=== PATIENT | female | born 1955 | race Caucasian/White ===

== ENCOUNTER 2021-09-08 15:00 | Emergency (ER) | payer MEDICARE, BC, SELFPAY ==
[2021-09-08] VITALS (8 sets, daily range): BP systolic 117–156; BP diastolic 69–80; PULSE 65–108; RESP 12–18; TEMP 36.6; O2SAT 92–100; BMI 23.1
--- NOTE | 2021-09-08 15:20 | ED_ITS ---
HPI - Fall General: Chief Complaint: Extremity Injury, Upper Stated Complaint: POSSIBLE BROKEN R ARM, N/V Time Seen by Provider: 09/08/21 15:04 History of Present Illness: 65-year-old female who presents to the emergency room after a fall at home. She was on some stairs but only they were somewhat crowded there is some children around her legs she stumbled and fell landing on her right side. She has a small laceration on restorationism lateral supraorbital ridge area as well as a deformity to the right elbow and severe pain. She has a sling in place on arrival here she denies loss of consciousness. 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 She denies any other injury. MD complaint: fall Onset (ago): minute(s) Fall from: standing Fall witnessed: yes, by bystander Place fall occurred: home Loss of consciousness: None Prolonged down time: no Symptoms prior to fall: none Context: tripped/slipped Location of injury: head Location of injury - extremities: Right: elbow Associated symptoms-after fall: Denies abdominal pain, chest pain, confusion, difficulty walking, headache(s), hematuria, lightheadedness, neck pain, numbness, short of breath, vertigo or weakness Review of Systems Const: Denies: fever(s), chills, body aches, change in appetite, fatigue or malaise ENMT: Denies: throat pain, ear or mastoid pain, nasal discharge or nasal congestion Card: Denies: chest pain or lightheadedness Resp: Denies: dyspnea, productive cough or non-productive cough GI: Denies: abdominal pain : Denies: hematuria Musc: Denies: neck pain Skin/Breast: Denies: rash or pruritus Neuro: Denies: headache(s), difficulty walking, vertigo or confusion PFS ED PFSH: Medical History Hypertension Physical Exam Const: COMMON NORMALS: no acute distress GENERAL APPEARANCE: cooperative and comfortable ORIENTATION/CONSCIOUSNESS: Yes awake, Yes oriented to person, Yes oriented to place and Yes oriented to time HENMT: COMMON NORMALS: normocephalic, hearing grossly normal bilaterally, external ears normal, EAC's normal and Normal nasal mucous membranes and turbinates present HEAD & SCALP: normocephalic NOSE: Normal nasal mucous membranes and turbinates present EXTERNAL EAR: Yes external ears normal EXTERNAL AUDITORY CANAL: EAC's normal OTHER: Nongaping superficial laceration to the right lateral supraorbital ridge. No active bleeding. Eye: COMMON NORMALS: Equal, round and reactive pupils present, EOMs intact bi laterally, conjunctivae normal and no scleral icterus CONJUNCTIVA: Yes co njunctivae normal PUPIL: Yes Equal, round and reactive pupils present Neck/C-Spine: COMMON NORMALS: no JVD Resp: COMMON NORMALS: normal respiratory effort, No retractions, No use of accessory muscles and clear to auscultation bilaterally AUSCULTATION: clear to auscultation bilaterally Cardio: COMMON NORMALS: no JVD, regular rate, regular rhythm and No murmurs present (Cardio) RATE: regular rate RHYTHM: regular rhythm GI: COMMON NORMALS: Soft to palpation and No hepatosplenomegaly present AUSCULTATION: Yes normoactive bowel sounds PALPATION: Yes Soft to palpation, No Tenderness to palpation present (GI), No Guarding due to palpation present (GI) and Yes No hepatosplenomegaly present Extremity: OTHER: Obvious deformity of the right elbow. X-ray confirms anterior dislocation radial head fracture neurovascularly intact distal to the injury. Neuro: SENSORIUM/ORIENTATION: Yes oriented to person, Yes oriented to place and Yes oriented to time Skin: COMMON NORMALS: no rashes or lesions noted GENERAL SKIN EXAM: no rashes or lesions noted Procedures Orthopedic Joint Reduction Joint #1: Time Out Performed: Yes Side: right Joint Reduction Location: elbow Analgesia: procedural sedation Technique used: traction/counter-traction Post-reduction neuro exam: intact Post-reduction vascular: intact Post Reduction X-Ray Obtained: Yes Post Reduction X-Ray Results: reduced Splint Applied: Yes Patient Tolerated Procedure: well Additional Comments: After initial reduction x-rays were taken and the elbow was extended slightly which resulted in repeat dislocation. This is evident on the postreduction film. Elbow was read reduced again patient was still under the effects of the initial conscious sedation was ketamine. Was held in position and splint applied. X-ray confirmed reduction. Orthopedic Splinting/Casting Injury #1: Side: right Upper Extremity Injury Location: elbow Upper Extremity Immobilizer: sling/shoulder immobilizer and posterior splint Additional Comments: Splint placed immediately after reduction of anterior dislocation of the elbow. Procedural Sedation Indication: fracture/dislocation reduction Preparation: monitoring tech applied, pulse oximeter, supplemental O2 applied, reversal agents at bedside and suction/airway equipment at bedside Ketamine: IV Ketamine dose (mg): 200 Patient Tolerated Procedure: well Complications: none Additional Comments: Patient tolerated procedural sedation without difficulty recovered well. Patient given low-dose of Ativan during recovery to help with side effects of ketamine. Course Vital Signs: Vital signs: Vital Signs Temperature 97.9 F 09/08/21 15:15 Pulse Rate 71 09/08/21 20:59 Respiratory Rate 14 09/08/21 20:59 Blood Pressure 117/69 09/08/21 20:59 Pulse Oximetry 95 09/08/21 20:59 MDM - Fall Medical Decision Making Reviewed and discussed case with Dr. Maradiaga. She is also reviewed. Initial and post reduction films. Patient will need to some elbow reconstruction with a radial head fracture. Patient is discharged home with pain medications and a posterior splint and sling referred to Dr. Maradiaga for further evaluation. Dr. Maradiaga and anticipates referral to subspecialist for elbow reconstruction. Patient advised to remain in the splint without exception until seen by Dr. Maradiaga. Return if has further problems. Medical Records I reviewed the patient's medical records. Lab Data I reviewed the patient's lab results. : 09/08/21 15:36 09/08/21 15:36 Radiology Impressions Cervical Spine X-Ray 09/08/21 15:21 IMPRESSION: 1. No obvious fracture or malalignment. The mid and inferior aspect of C7 is difficult to identify with any degree of certainty. 2. Degenerative changes. Head CT 09/08/21 15:22 IMPRESSION: 1. No acute intracranial hemorrhage or edema. 2. Small RIGHT frontal scalp hematoma. Elbow X-Ray 09/08/21 17:52 IMPRESSION: 1. Reduction of the right ulnar trochlear joint. 2. Severely displaced comminuted proximal right radius fracture. Laboratory Results WBC 12.3 10^3/uL (4.0-10.0) H 09/08/21 15:36 RBC 4.36 10^6/uL (4.1-5.3) 09/08/21 15:36 Hgb 11.8 g/dL (11.5-15.3) 09/08/21 15:36 Hct 37.6 % (37.0-47.0) 09/08/21 15:36 MCV 86.2 fl (81-99) 09/08/21 15:36 MCH 27.1 pg (28.0-34.0) L 09/08/21 15:36 MCHC 31.4 g/dL (30.0-36.0) 09/08/21 15:36 RDW 14.7 % (12.1-15.1) 09/08/21 15:36 Plt Count 356 10^3/cmm (130-400) 09/08/21 15:36 MPV 11.3 fL (7.4-10.4) H 09/08/21 15:36 Neut % (Auto) 56.5 % 09/08/21 15:36 Lymph % (Auto) 29.8 % 09/08/21 15:36 Clinch % (Auto) 11.1 % 09/08/21 15:36 Eos % (Auto) 1.5 % 09/08/21 15:36 Baso % (Auto) 0.6 % 09/08/21 15:36 Neut # (Auto) 6.96 10^3/uL (1.8-7.7) 09/08/21 15:36 Lymph # (Auto) 3.7 10^3/uL (0.8-4.8) 09/08/21 15:36 Clinch # (Auto) 1.4 10^3/uL (0.2-0.9) H 09/08/21 15:36 Eos # (Auto) 0.2 10^3/uL (0.0-0.8) 09/08/21 15:36 Baso # (Auto) 0.1 10^3/uL (0.0-0.1) 09/08/21 15:36 Nucleated RBC % (auto) 0 % 09/08/21 15:36 Nucleated RBCs # 0.0 /100WBC 09/08/21 15:36 Sodium 140 mmol/L (136-145) 09/08/21 15:36 Potassium 2.9 mmol/L (3.5-5.1) L 09/08/21 15:36 Chloride 103 mmol/L (98-107) 09/08/21 15:36 Carbon Dioxide 24 mmol/L (22-29) 09/08/21 15:36 Anion Gap 15.9 (5-19) 09/08/21 15:36 BUN 19 mg/dL (8-23) 09/08/21 15:36 Creatinine 1.0 mg/dL (0.5-0.9) H 09/08/21 15:36 GFR Calculation 55.3 mL/min (90-130) L 09/08/21 15:36 Glucose 116 mg/dL (65-115) H 09/08/21 15:36 Calculated Osmolality 293 mOsm/kg (285-295) 09/08/21 15:36 Calcium 8.8 mg/dL (8.5-10.5) 09/08/21 15:36 Total Bilirubin 0.2 mg/dL (0.15-1.2) 09/08/21 15:36 AST 19 U/L (0-32) 09/08/21 15:36 ALT 12 U/L (0-33) 09/08/21 15:36 Alkaline Phosphatase 73 IU/L (35-105) 09/08/21 15:36 Total Protein 6.3 g/dL (6.6-8.7) L 09/08/21 15:36 Albumin 3.9 g/dL (3.5-5.2) 09/08/21 15:36 Globulin 2.4 g/dL (1.3-4.6) 09/08/21 15:36 Discharge Plan Discharge Patient Disposition: Home Clinical Impression: Fracture, radius, head, Dislocation of elbow, anterior, right, closed Condition: Stable Prescriptions: New hydrocodone-acetaminophen 5-325 mg tablet 1 tab PO Q6H PRN (Reason: pain) Qty: 20 0RF ondansetron 4 mg tablet,disintegrating 4 mg PO Q6H PRN (Reason: nausea and vomiting) Qty: 14 0RF No Action lisinopril-hydrochlorothiazide 20-12.5 mg tablet 2 tab PO QAM 0RF lovastatin 40 mg tablet 40 mg PO QAM 0RF prednisone 5 mg tablet 5 mg PO EVERY OTHER DAY 0RF potassium chloride 10 mEq tablet extended release 10 meq PO BID 0RF Discharge Orders: Discharge ED (Routine); Ordered 09/08/21 Ordered By: Matthew Galvan Referrals: Dino Taylor MD [Physician] - Patient Instructions: Opioid Safety Activity Restrictions/Additional Instructions: Remain in the sling. Case management will call to make arrangements for you to see orthopedics. Ice elbow use pain medications as needed. Coding Level of Care Code ED Street Openings Inspector for Tiburcio Ward
--- NOTE | 2021-09-08 15:21 | XR_ITS ---
WS: [id number] Exam: XR cervical spine 3V* [id number] Date/Time of Exam: 09/08/2021 3:28 PM Reason For Exam: fall No obvious fracture or dislocation involving the upper 6 cervical vertebra. Only the upper plate of C 7 is visualized and appears to be intact. Facet DJD at all levels. The odontoid is intact. Normal par aspinal soft tissues. XR/XR cervical spine 3V* [id number] IMPRESSION: 1. No obvious fracture or malalignment. The mid and inferior aspect of C7 is di fficult to identify with any degree of certainty. 2. Degenerative changes.
--- NOTE | 2021-09-08 15:21 | XR_ITS ---
WS: [id number] Exam: XR elbow RT min 3V* [id number] Date/Time of Exam: 09/08/2021 3:28 PM Reason For Exam: fall There is posterior dislocation of the proximal radius and ulna. There is a transverse fracture throug h the radial neck with the anterior inferior displacement of the radial head with [id number] apposi tion along the proximal shaft of the radius. There is also an avulsion fracture of the coronoid proce ss of the ulna. XR/XR elbow RT min 3V* [id number] IMPRESSION: 1. Posterior elbow dislocation with displaced fractures of the radial neck as w ell as the coronoid process of the ulna.
--- NOTE | 2021-09-08 15:22 | CT_ITS ---
WS: [id number] CT HEAD NONCONTRAST HISTORY: fall TECHNIQUE: Contiguous axial imaging performed through the brain in 2.5 mm imaging. Bone and soft tiss ue windows. Sagittal and coronal reformats reviewed. All CT scans at [facility] use at least one of these dose optimization techniques: automated exposure control; mA and/or kV adjustment per pa tient size (includes targeted exams where dose is matched to clinical indication); or iterative recon struction. DLP: 835.19 mGy.cm COMPARISON: None available. No acute intracranial hemorrhage, midline shift or mass effect. No atrophy or prior infarcts or herniation. Ventricles: Normal size with no hydrocephalus. Paranasal sinuses: As visualized are clear. Mastoid air cells: Well pneumatized. Calvarium and scalp: No fracture. Small scalp contusion over the RIGHT lateral frontal bone. CT/CT head wo con* [id number] IMPRESSION: 1. No acute intracranial hemorrhage or edema. 2. Small RIGHT frontal scalp hematoma.
[2021-09-08 15:50] LABS: Basophils # 0.1 10^3/uL (0.0-0.1); Basophils % 0.6 %; Eosinophils # 0.2 10^3/uL (0.0-0.8); Eosinophils % 1.5 %; Hematocrit 37.6 % (37.0-47.0); Hemoglobin 11.8 g/dL (11.5-15.3); Lymphocytes # 3.7 10^3/uL (0.8-4.8); Lymphocytes % 29.8 %; Mean Corpuscular HGB Conc 31.4 g/dL (30.0-36.0); Mean Corpuscular Hemoglobin 27.1 pg (28.0-34.0); Mean Corpuscular Volume 86.2 fl (81-99); Mean Platelet Volume 11.3 fL (7.4-10.4); Monocytes # 1.4 10^3/uL (0.2-0.9); Monocytes % 11.1 %; Neutrophils # 6.96 10^3/uL (1.8-7.7); Neutrophils % 56.5 %; Nucleated Red Blood Cells % 0 %; Platelet Count 356 10^3/cmm (130-400); Red Blood Count 4.36 10^6/uL (4.1-5.3); Red Cell Distribution Width 14.7 % (12.1-15.1); White Blood Count 12.3 10^3/uL (4.0-10.0)
[2021-09-08 16:17] LABS: Alanine Aminotransferase 12 U/L (0-33); Albumin Level 3.9 g/dL (3.5-5.2); Alkaline Phosphatase 73 IU/L (35-105); Anion Gap 15.9 (5-19); Aspartate Amino Transferase 19 U/L (0-32); Blood Urea Nitrogen 19 mg/dL (8-23); Calcium 8.8 mg/dL (8.5-10.5); Carbon Dioxide 24 mmol/L (22-29); Chloride 103 mmol/L (98-107); Globulin 2.4 g/dL (1.3-4.6); Glomerular Filtration Rate 55.3 mL/min (90-130); Glucose 116 mg/dL (65-115); Osmolality Calculated 293 mOsm/kg (285-295); Sodium 140 mmol/L (136-145); Total Bilirubin 0.2 mg/dL (0.15-1.2); Total Protein 6.3 g/dL (6.6-8.7)
[2021-09-08 16:21] LABS: Potassium 2.9 mmol/L (3.5-5.1)
[2021-09-08] MEDS: morphine 4 mg/mL SDV 1 mL IVP (17:32)
--- NOTE | 2021-09-08 17:52 | XRR_ITS ---
PROCEDURE INFORMATION: Exam: XR Right Elbow Exam date and time: 09/08/2021 5:52 PM Age: 65 years old Clinical indication: Injury or trauma; Fall; Blunt trauma (contusions or hematomas); Elbow; Right; Additional info: Post reduction TECHNIQUE: Imaging protocol: XR Right elbow. Views: 1 or 2 views. COMPARISON: CR XR elbow RT min 3V* [id number] 09/08/2021 3:40 PM FINDINGS: Bones/joints: The ulnar trochlear joint has been reduced. Rotated severely displaced comminuted fracture through the radial head and neck. The radial head is distracted from the capitellum a distance of approximately 1.8 cm. Soft tissues: Normal. Other findings: Single lateral view. XR/XR elbow RT 2V [id number] IMPRESSION: 1. Reduction of the right ulnar trochlear joint. 2. Severely displaced comminuted proximal right radius fracture.
[2021-09-08] MEDS: LORazepam 2 mg/mL INJ 1 mL 1 MG IVP (18:12)
--- NOTE | 2021-09-08 18:25 | PC.NURSE ---
PATIENT AWAKE FROM SEDATION, STATES ARM FEELS BETTER.
[2021-09-08] MEDS: ondansetron 2 mg/ML SDV 2 mL 4 MG IVP (19:39)
--- NOTE | 2021-09-08 19:43 | PC.NURSE ---
Pt weaned to 1L O2 per NC, pt has multiple episodes of clear emesis. Verbal order for Zofran received from Dr. Valero, med administered. Pt repositioned in bed, sts she is starting to feel better. VSS, no immediate needs identified, will continue to monitor.
--- NOTE | 2021-09-08 19:58 | PC.NURSE ---
Pt sts she is doing better, denies nausea, pt weaned off O2, now doing RA trial. No other needs identified at this time, will continue to monitor.
[2021-09-08] MEDS: ondansetron 2 mg/ML SDV 2 mL 4 MG IM (20:40)
--- NOTE | 2021-09-09 08:51 | DCPLANNER ---
Addendum entered by Aleshia Mckeon 09/19/21 10:15: late entry - high risk case manager was told that patient would need to be referred to a specialist. manager heavy equipment faxed patients information to [facility], clinic will call patient with appointment information. Original Note: manager heavy equipment had message to schedule a follow up appointment for patient with ortho. manager heavy equipment called the ortho clinic, spoke with Evelyn, gave clinic patients information. manager heavy equipment was told that patients information will be printed and reviewed. Clinic will call patient with appointment information.
== END 2021-09-08 21:03 | disposition home or self-care (01) ==
PROVIDERS: Emergency Provider Family Medicine
DX: S52.121A Displaced fracture of head of right radius, initial encounter for closed fracture (principal); S53.114A Anterior dislocation of right ulnohumeral joint, initial encounter; S00.03XA Contusion of scalp, initial encounter; I10 Essential (primary) hypertension; W10.8XXA Fall (on) (from) other stairs and steps, initial encounter
CPT/HCPCS: 24620; 70450; 72040; 73070; 73080; 80053; 85025; 96372; 96374; 96375; 96376; 99284; J2060; J2270; J2405; J3490

== ENCOUNTER 2021-10-01 16:13 | Emergency (ER) | payer MEDICARE, BC, SELFPAY ==
[2021-10-01] VITALS (8 sets, daily range): BP systolic 102–120; BP diastolic 62–76; PULSE 96–125; RESP 17–22; TEMP 36.6–36.9; O2SAT 96–100
--- NOTE | 2021-10-01 16:30 | ECG_ITS ---
[facility] Test Date: 2021-10-01 Pat Name: Magda Patel Department: Room: Gender: Female Health Information Tech: : [id number] Requested By: Austyn Shell Order Number: [id number] Ramin MD: Drew Santizo M.D. Measurements Intervals [place] Rate: 113 P: 60 [place]: 129 QRS: 7 QRSD: 84 T: 30 QT: 328 QTc: 451 Interpretive Statements SINUS TACHYCARDIA WITH OCCASIONAL SUPRAVENTRICULAR PREMATURE COMPLEXES No previous ECG available for comparison Electronically Signed On 10-01-2021 18:40:30 CDT by Drew Santizo M.D. [id number]
--- NOTE | 2021-10-01 17:22 | ED_ITS ---
HPI - Weakness General: Chief complaint: Weakness Stated complaint: Low BP, leg cramps, N/V Time Seen by Provider: 10/01/21 17:16 History of Present Illness: Ms. Patel is a 66-year-old lady with significant past medical history of hypertension, hyperlipidemia, ITP, anemia and recent surgery for arm injury who presents to the emergency department due to generalized malaise. Symptoms essentially been ongoing since a fall on 09/08. She has had weakness, fatigue, aches however this is worsened over the past few days and lower extremity cramps have started. Additionally she has positional lightheadedness and near syncope. She did have surgery of her arm on 09/23 and this is in a splint. No other specific changes in health, exacerbating, relieving factors identified. Onset (ago): week(s) Location: generalized, LLE and RLE Severity: moderate Quality: other Relieving factors: none Exacerbating factors: none Context: recent surgery Review of Systems General: Reports: 10 or more systems reviewed and unremarkable except in HPI and below PFSH ED PFSH: Medical History (Updated 10/01/21 @ 22:54 by Connor Ambrose MD) History of ITP Hypertension Surgical History (Updated 10/01/21 @ 22:54 by Connor Ambrose MD) H/O splenectomy History of hysterectomy History of surgery on arm Physical Exam Const: COMMON NORMALS: alert GENERAL APPEARANCE: cooperative and well developed HENMT: COMMON NORMALS: normocephalic and atraumatic HEAD & SCALP: normocephalic and atraumatic Eye: COMMON NORMALS: conjunctivae normal CONJUNCTIVA: Yes conjunctivae normal SCLERA: sclerae normal Neck/C-Spine: COMMON NORMALS: supple GENERAL: Yes trachea midline Resp: COMMON NORMALS: clear to auscultation bilaterally EFFORT & INSPECTION: Yes able to speak in complete sentences AUSCULTATION: clear to auscultation bilaterally Cardio: COMMON NORMALS: regular rhythm RATE: tachycardic RHYTHM: regular rhythm GI: COMMON NORMALS: Soft to palpation PALPATION: Yes Soft to palpation and No Tenderness to palpation present (GI) PERCUSSION: normal to percussion Extremity: NARRATIVE EXTREMITY EXAM: Right upper extremity in splint. distal CMS intact. GENERAL: Yes normal exam except as noted and No edema Neuro: COMMON NORMALS: moves all extremities SENSORIUM/ORIENTATION: Yes alert and No Orientation impaired Psych: COMMON NORMALS: mental status grossly normal and Normal thought process present THOUGHT PROCESS: Normal thought process present Course ED course: - Patient was seen and evaluated by me at bedside - Patient placed on cardiac monitors, IV access obtained - Initial evaluation notable for exam as above, no extremity edema or asymmetry. - Labs and xrays personally interpreted by me - Fluids, steroids given steroids were administered given patient's history of chronic steroid reported symptoms - Labs notable for leukocytosis which is difficult to interpret in context of steroid use. Hemoglobin 7.4 which is significantly decreased compared to baseline. Metabolic panel with mild evidence of dehydration. CRP only minimally increased with normal ESR which makes postoperative infection less likely. Urinalysis not concerning for urinary tract infection - Imaging notable for no lobar consolidation or pneumothorax on chest x-ray. Radiology interpretation of forearm x-ray without acute abnormality. - Upon serial reexamination after treatment the patient was similar. - I attempted to contact the patient's operating surgeon however was unable to get a hold of him - Given reported symptoms as well as IV fluid administration I did recommend blood transfusion which the patient declined. I explained reasoning for transfusion and the patient understands however continues to decline transfusion. - Based on patient history, evaluation, and testing as interpreted the most likely cause of the patient's condition is unclear though likely related to symptomatic anemia. - The results of ED evaluation were discussed with the patient including prescriptions and/or symptomatic cares (if applicable) including appropriate and responsible use, followup plan, and return precautions. The patient verbalized understanding and felt safe for discharge. - Patient discharged in satisfactory condition. Note: Click bubbles or prepopulated denis in note writing are used for assistance with data collection and billing and are inherently more limited than narrative and other text portions of this note. Please use narrative for additional clinical history and defer to narrative/free test for any case of contradictory information. If information appears in only free text or click bubble it should be considered present or absent as reported. Please contact note proposal writer for clarifications of clinical information or contradictory information. MDM is a brief summary, contradictory or erroneous seeming information should be clarified and full note should be reviewed. Vital Signs: Vital signs: Vital Signs Temperature 98.4 F 10/01/21 23:34 Pulse Rate 96 10/01/21 23:34 Respiratory Rate 18 10/01/21 23:34 Blood Pressure 113/72 10/01/21 23:34 Pulse Oximetry 100 10/01/21 23:34 MDM - Weakness Medical Decision Making 66-year-old lady with complex recent medical history secondary to fall with elbow fracture now presenting with generalized intense including lower extremity cramping. Patient found to have anemia and likely dehydration. Recommended transfusion which the patient declined. Attempted to contact the patient's surgeon regarding her symptoms however was unable to make contact. Patient musa ires discharge and was discharged for outpatient follow-up. Medical Records I reviewed the patient's medical records. Lab Data I reviewed the patient's lab results. : 10/01/21 18:07 10/01/21 18:07 Radiology Impressions Forearm X-Ray 10/01/21 17:43 IMPRESSION: Postop arthroplasty changes of the right elbow in expected alignment. Chest X-Ray 10/01/21 18:37 IMPRESSION: No acute findings. Laboratory Results WBC 14.4 10^3/uL (4.0-10.0) H 10/01/21 18:07 RBC 2.72 10^6/uL (4.1-5.3) L 10/01/21 18:07 Hgb 7.4 g/dL (11.5-15.3) L 10/01/21 18:07 Hct 23.6 % (37.0-47.0) L 10/01/21 18:07 MCV 86.8 fl (81-99) 10/01/21 18:07 MCH 27.2 pg (28.0-34.0) L 10/01/21 18:07 MCHC 31.4 g/dL (30.0-36.0) 10/01/21 18:07 RDW 15.3 % (12.1-15.1) H 10/01/21 18:07 Plt Count 582 10^3/cmm (130-400) H 10/01/21 18:07 MPV 11.2 fL (7.4-10.4) H 10/01/21 18:07 Neut % (Auto) 83.9 % 10/01/21 18:07 Lymph % (Auto) 10.1 % 10/01/21 18:07 Arthur % (Auto) 4.7 % 10/01/21 18:07 Eos % (Auto) 0.1 % 10/01/21 18:07 Baso % (Auto) 0.4 % 10/01/21 18:07 Neut # (Auto) 12.09 10^3/uL (1.8-7.7) H 10/01/21 18:07 Lymph # (Auto) 1.5 10^3/uL (0.8-4.8) 10/01/21 18:07 Arthur # (Auto) 0.7 10^3/uL (0.2-0.9) 10/01/21 18:07 Eos # (Auto) 0.0 10^3/uL (0.0-0.8) 10/01/21 18:07 Baso # (Auto) 0.1 10^3/uL (0.0-0.1) 10/01/21 18:07 Nucleated RBC % (auto) 0.3 % 10/01/21 18:07 Nucleated RBCs # 0.0 /100WBC 10/01/21 18:07 ESR 13 mm/hr (0-15) 10/01/21 18:07 Sodium 140 mmol/L (136-145) 10/01/21 18:07 Potassium 3.7 mmol/L (3.5-5.1) 10/01/21 18:07 Chloride 106 mmol/L (98-107) 10/01/21 18:07 Carbon Dioxide 21 mmol/L (22-29) L 10/01/21 18:07 Anion Gap 16.7 (5-19) 10/01/21 18:07 BUN 30 mg/dL (8-23) H 10/01/21 18:07 Creatinine 0.8 mg/dL (0.5-0.9) 10/01/21 18:07 GFR Calculation 71.3 mL/min (90-130) L 10/01/21 18:07 Glucose 110 mg/dL (65-115) 10/01/21 18:07 Calculated Osmolality 297 mOsm/kg (285-295) H 10/01/21 18:07 Lactate 1.5 mmol/L (0.5-2.2) 10/01/21 18:07 Calcium 8.9 mg/dL (8.5-10.5) 10/01/21 18:07 Magnesium 2.0 mg/dL (1.7-2.3) 10/01/21 18:07 Total Bilirubin 0.2 mg/dL (0.15-1.2) 10/01/21 18:07 AST 13 U/L (0-32) 10/01/21 18:07 ALT < 5 U/L (0-33) 10/01/21 18:07 Alkaline Phosphatase 84 IU/L (35-105) 10/01/21 18:07 Troponin T Baseline 10 ng/L (0-10) 10/01/21 18:07 Troponin T 120 Minute 12.60 ng/L (0-10) H 10/01/21 20:22 Delta Troponin T 2.60 ABS# (0-10) 10/01/21 20:22 C-Reactive Protein 6.2 mg/L (0.0-4.9) H 10/01/21 18:07 Total Protein 6.1 g/dL (6.6-8.7) L 10/01/21 18:07 Albumin 3.5 g/dL (3.5-5.2) 10/01/21 18:07 Globulin 2.6 g/dL (1.3-4.6) 10/01/21 18:07 TSH 3.59 uIU/mL (0.27-4.20) 10/01/21 18:07 Urine Color Yellow (Yellow) 10/01/21 19:15 Urine Appearance Clear (CLEAR) 10/01/21 19:15 Urine pH 8 (5-7) H 10/01/21 19:15 Ur Specific [place] 1.010 (1.005-1.030) 10/01/21 19:15 Urine Protein Neg (Negative) 10/01/21 19:15 Urine Glucose (UA) Norm (Normal) 10/01/21 19:15 Urine Ketones Negative (Negative) 10/01/21 19:15 Urine Blood Neg (Negative) 10/01/21 19:15 Urine Nitrate Negative (Negative) 10/01/21 19:15 Urine Bilirubin Neg (Negative) 10/01/21 19:15 Prot Sulfosalicylic Acd Negative (Negative) 10/01/21 19:15 Urine Urobilinogen Norm mg/dL (Negative) 10/01/21 19:15 Ur Leukocyte Esterase Negative (Negative) 10/01/21 19:15 EKG Data EKG 1: I personally reviewed and interpreted this EKG as follows: EKG interpretation date: 10/01/21 EKG interpretation time: 17:15 Interpretation: Twelve-lead EKG shows a regular rhythm at a rate of 113. MI interval 149, QRS duration 84, QTc 395. Normal axis. Interpretation: Sinus rhythm. Nonspecific ST segment abnormalities. Tachycardia. EKG 2: I personally reviewed and interpreted this EKG as follows: EKG interpretation date: 10/01/21 EKG interpretation time: 20:31 Interpretation: Twelve-lead EKG shows a regular rhythm at a rate of 100. MI interval 135, QRS duration 86, QTc 428. Normal axis. Interpretation: Sinus rhythm with nonspecific ST segment abnormalities. Discharge Plan Discharge Patient Disposition: Home Clinical Impression: History of surgery on arm, Anemia, Dehydration, Weakness, Leukocytosis Condition: Stable Prescriptions: No Action lisinopril-hydrochlorothiazide 20-12.5 mg tablet 2 tab PO QAM 0RF lovastatin 40 mg tablet 40 mg PO QAM 0RF prednisone 5 mg tablet 5 mg PO EVERY OTHER DAY 0RF potassium chloride 10 mEq tablet extended release 10 meq PO BID 0RF hydrocodone-acetaminophen 5-325 mg tablet 1 tab PO Q6H PRN (Reason: pain) Qty: 20 0RF ondansetron 4 mg tablet,disintegrating 4 mg PO Q6H PRN (Reason: nausea and vomiting) Qty: 14 0RF iron 325 mg (65 mg iron) Tablet 325 mg PO BID 0RF docusate sodium 100 mg capsule 100 mg PO BID 0RF oxycodone 5 mg tablet 5 mg PO Q4H 0RF Discharge Orders: Discharge ED (Routine); Ordered 10/01/21 Ordered By: Connor Ambrose Discharge Diet: Usual diet Discharge Activity: Limit activity as instructed Patient Instructions: Leukocytosis (ED), Weakness (ED), Anemia (ED), Tachycardia (ED) Activity Restrictions/Additional Instructions: Thank you for visiting the emergency department. You were seen and evaluated for weakness, cramping, and fatigue. The exact cause of the symptoms is unclear though may be related to anemia. I recommend transfusion which you are declchrista perera. Please follow-up with your primary care provider. Please follow-up with your orthopedic surgeon. Please return to the emergency department for anything that you are concerned about and feel needs emergency department evaluation. Coding Level of Care Code ED Financial Aid Coordinator for [employer]urcio Fwd Exam Comprehensive
--- NOTE | 2021-10-01 17:43 | XRR_ITS ---
PROCEDURE INFORMATION: Exam: XR Right Forearm Exam date and time: 10/01/2021 5:43 PM Age: 66 years old Clinical indication: Pain; Right; Prior surgery; Surgery date: <1 month; Surgery type: Elbow x3, last surgery 09/23/2021; Additional info: Post op TECHNIQUE: Imaging protocol: XR Right forearm. Views: 2 views. COMPARISON: CR XR elbow RT 2V [id number] 09/08/2021 5:55 PM FINDINGS: Bones/joints: Postop arthroplasty changes with radial head component and suture button noted at the olecranon in expected alignment. Osseous structures are intact. Soft tissues: Normal. XR/XR forearm RT 2V [id number] IMPRESSION: Postop arthroplasty changes of the right elbow in expected alignment.
[2021-10-01 18:24] LABS: Basophils # 0.1 10^3/uL (0.0-0.1); Basophils % 0.4 %; Eosinophils % 0.1 %; Hematocrit 23.6 % (37.0-47.0); Hemoglobin 7.4 g/dL (11.5-15.3); Lymphocytes # 1.5 10^3/uL (0.8-4.8); Lymphocytes % 10.1 %; Mean Corpuscular HGB Conc 31.4 g/dL (30.0-36.0); Mean Corpuscular Hemoglobin 27.2 pg (28.0-34.0); Mean Corpuscular Volume 86.8 fl (81-99); Mean Platelet Volume 11.2 fL (7.4-10.4); Monocytes # 0.7 10^3/uL (0.2-0.9); Monocytes % 4.7 %; Neutrophils # 12.09 10^3/uL (1.8-7.7); Neutrophils % 83.9 %; Nucleated Red Blood Cells % 0.3 %; Platelet Count 582 10^3/cmm (130-400); Red Blood Count 2.72 10^6/uL (4.1-5.3); Red Cell Distribution Width 15.3 % (12.1-15.1); White Blood Count 14.4 10^3/uL (4.0-10.0)
[2021-10-01] MEDS: lactated ringers 1,000 ML 999 ML IV (18:31)
[2021-10-01] MEDS: hydrocortisone 100 mg/2 mL SDV 50 MG IVP (18:31)
--- NOTE | 2021-10-01 18:37 | XRR_ITS ---
PROCEDURE INFORMATION: Exam: XR Chest Exam date and time: 10/01/2021 6:37 PM Age: 66 years old Clinical indication: Shortness of breath and other: Low BP, n/v, and weakness; Additional info: Weakness, ? infection TECHNIQUE: Imaging protocol: XR of the chest. Views: 1 view. COMPARISON: CR XR cervical spine 3V* [id number] 09/08/2021 3:43 PM FINDINGS: Lungs: No consolidation. Pleural spaces: No pleural effusion. No pneumothorax. Heart/Mediastinum: No cardiomegaly. Bones/joints: Visualized osseous structures are intact. XR/XR chest 1V portable [id number] IMPRESSION: No acute findings.
[2021-10-01 18:42] LABS: Lactate (Lactic Acid level) 1.5 mmol/L (0.5-2.2)
[2021-10-01 18:46] LABS: Troponin(5th) Baseline 10 ng/L (0-10)
[2021-10-01 18:56] LABS: Alanine Aminotransferase < 5 U/L (0-33); Albumin Level 3.5 g/dL (3.5-5.2); Alkaline Phosphatase 84 IU/L (35-105); Anion Gap 16.7 (5-19); Aspartate Amino Transferase 13 U/L (0-32); Blood Urea Nitrogen 30 mg/dL (8-23); Calcium 8.9 mg/dL (8.5-10.5); Carbon Dioxide 21 mmol/L (22-29); Chloride 106 mmol/L (98-107); Globulin 2.6 g/dL (1.3-4.6); Glomerular Filtration Rate 71.3 mL/min (90-130); Glucose 110 mg/dL (65-115); Osmolality Calculated 297 mOsm/kg (285-295); Potassium 3.7 mmol/L (3.5-5.1); Sodium 140 mmol/L (136-145); Thyroid Stimulating Hormone 3.59 uIU/mL (0.27-4.20); Total Bilirubin 0.2 mg/dL (0.15-1.2); Total Protein 6.1 g/dL (6.6-8.7)
--- NOTE | 2021-10-01 19:36 | ECG_ITS ---
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 Measurements Intervals [place] Rate: 100 P: 51 TX: 135 QRS: 7 QRSD: 86 T: 26 QT: 371 QTc: 480 Interpretive Statements SINUS TACHYCARDIA Compared to ECG 10/01/2021 17:12:47 No significant changes Electronically Signed On 10-01-2021 23:06:20 CDT by Drew Santizo M.D. [id number]
[2021-10-01 19:53] LABS: Erythrocyte Sedimentation Rate 13 mm/hr (0-15)
[2021-10-01 20:04] LABS: C Reactive Protein 6.2 mg/L (0.0-4.9)
[2021-10-01 20:05] LABS: Add Urine Microscopic? NO; Charge for UA Resulting for Rev
[2021-10-01 20:09] LABS: Bilirubin Urine Neg (Negative); Blood Urine Neg (Negative); Glucose Urine UA Norm (Normal); Ketones Urine Negative (Negative); Leukocyte Esterase Urine Negative (Negative); Nitrate Urine Negative (Negative); Protein Urine Neg (Negative); Sulfosalicylic Acid Urine Negative (Negative); Urine Appearance Clear (CLEAR); Urine Color Yellow (Yellow); Urobilinogen Urine Norm (Negative); pH Urine 8 (5-7)
--- NOTE | 2021-10-01 23:34 | PC.NURSE ---
Pt refusing covid swab
== END 2021-10-01 23:38 | disposition home or self-care (01) ==
PROVIDERS: Nurse Practitioner Family; Emergency Provider Emergency Medicine
DX: R53.1 Weakness (principal); D72.829 Elevated white blood cell count, unspecified; D64.9 Anemia, unspecified; E86.0 Dehydration; Z98.890 Other specified postprocedural states; I10 Essential (primary) hypertension
CPT/HCPCS: 36415; 71045; 73090; 80053; 81003; 83605; 83735; 84443; 84484; 85025; 85651; 86140; 87040; 93005; 96361; 96374; 99284; J1720